=== PATIENT | male | born 1980 | race African-American/Black ===

== ENCOUNTER 2021-09-29 10:45 | Emergency (ER) | payer MEDICAID, OTHER ==
[~2021-09-29] VITALS: Ht 172.7 cm; Wt 66.7 kg
--- NOTE | 2021-09-29 11:27 | NUR ---
THE PATIENT BIBRA FOR ETOH INTOX. THE PATIENT ALERT TO SELF AND ADMITTED DRINKING ALCOHOL. IN ROOM AIR. BREATHING EVEN AND UNLABORED. ATTACHED TO THE MONITOR. WILL CONTINUE TO MONITOR THE PATIENT.
[2021-09-29 14:23] VITALS: BP 131/76
--- NOTE | 2021-09-29 14:23 | NUR ---
The patient is alert and oriented x3. Denies pain. In room air and denies SOB. Respiration regular and unlabored. Denies Si/HI. Patient discharged to home in stable condition. Written and verbal after care instructions given. Patient verbalizes understanding of instruction.
== END 2021-09-29 14:24 | disposition home or self-care (01) ==
LOC: ER 10:51 → EDBD 10:51 → ER 14:24
DX: F10.129 Alcohol abuse with intoxication, unspecified (principal); I10 Essential (primary) hypertension; Z59.00 Homelessness unspecified; Z60.2 Problems related to living alone; Y90.9 Presence of alcohol in blood, level not specified